=== PATIENT | male | born 1965 | race Caucasian/White ===

== ENCOUNTER 2019-01-10 11:40 | Emergency (ER) | payer OTHER ==
[~2019-01-10] VITALS: Ht 182.9 cm; Wt 124.3 kg
[2019-01-10 11:45] VITALS: BP 142/86
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
[2019-01-10] MEDS ORDERED: methylPREDNISolone SOD SUCC PF 125 MG/2 ML VIAL. IM ONE (12:15)
[2019-01-10] MEDS ORDERED: METH4TAB2 PO (13:25)
[2019-01-10] MEDS ORDERED: CEPH-264 PO (13:25)
[2019-01-10] MEDS ORDERED: HYDR-3165 PO (13:25)
== END 2019-01-10 13:31 | disposition home or self-care (01) ==
LOC: ER 11:40
DX: T20.59XA Corrosion of first degree of multiple sites of head, face, and neck, initial encounter (principal); I10 Essential (primary) hypertension; Z88.6 Allergy status to analgesic agent; Y93.89 Activity, other specified; Y92.89 Other specified places as the place of occurrence of the external cause; Y99.8 Other external cause status
CPT/HCPCS: 96372; 99283; J2930